=== PATIENT | female | born 1990 | race Caucasian/White ===

== ENCOUNTER 2019-04-05 10:08 | Emergency (ER) | payer OTHER ==
[2019-04-05 10:27] VITALS: BP 135/106
[2019-04-05] MEDS ORDERED: cephALEXin 250 MG CAPSULE PO STA (12:22)
--- NOTE | 2019-04-05 12:29 | ED Physician Documentation ---
History of Present Illness - Stated complaint Stated Complaint: BREAST PAIN - Chief complaint Chief Complaint: General - History obtained from History obtained from: Patient - History of Present Illness Timing: Today Pain level max: 4 Pain level now: 3 - Additonal information Additional information: R breast redness and tenderness starting today. Nothing makes it better or worse. a 1 month old infant. No fevers or chills. Review of Systems Constitutional: denies: Fever, Chills GI: denies: Vomiting : denies: Now [facility] PAST MEDICAL HISTORY - Past Medical History Past Medical History: No - Past Surgical History Past Surgical History: No - Present Medications Home Medications: Ambulatory Orders Medication Instructions Recorded Confirmed Cephalexin [Keflex] 500 mg PO Q6H #28 capsule 04/05/19 - Allergies Allergies/Adverse Reactions: Allergies Allergy/AdvReac Type Severity Reaction Status Date / Time No Known Drug Allergies Allergy Verified 04/05/19 10:27 - Social History Does the pt smoke?: No Smoking Status: Never smoker Does the pt drink ETOH?: No Does the pt have substance abuse?: No - Immunizations Immunizations are current?: Yes - POLST Patient has POLST: No PD ED PE NORMAL - Vitals Vital signs reviewed: Yes - General General: Alert and oriented X 3, No acute distress - HEENT HEENT: Moist mucous membranes - Derm Derm: Warm and dry - Extremities Extremities: Other (Right breast - Erythema to the medial aspect of the right breast. No palpable abscess. No pus from the nipple. Left breast is normal) - Neuro Neuro: Alert and oriented X 3 - Psych Psych: Normal mood, Normal affect Results - Vitals Vitals: Vital Signs - 24 hr 04/05/19 10:25 Temperature 36.4 C L Heart Rate 98 Respiratory 14 Rate Blood Pressure 135/106 H O2 Saturation 100 Oxygen O2 Source Room air PD MEDICAL DECISION MAKING - ED course Complexity details: considered differential, d/w patient ED course: Patient with mastitis. Will place on Keflex and continue breast-feeding. We will follow-up with her doctor for further care. Patient counseled regarding signs and symptoms for which I believe and urgent re-evaluation would be necessary. Patient with good understanding of and agreement to plan and is comfortable going home at this time This document was made in part using voice recognition software. While efforts are made to proofread this document, sound alike and grammatical errors may occur. Departure - Departure Disposition: 01 Home, Self Care Clinical Impression: Mastitis Condition: Good Instructions: ED Breast Infec Follow-Up: Yumiko Sosa DO [Primary Care Provider] - Within 1 week Prescriptions: Cephalexin [Keflex] 500 mg PO Q6H #28 capsule Comments: Return if you worsen. Take all antibiotics until gone. Continue to breast feed
== END 2019-04-05 12:33 | disposition home or self-care (01) ==
LOC: ED 10:08
DX: O91.22 Nonpurulent mastitis associated with the puerperium (principal)
CPT/HCPCS: 99283; A9270